=== PATIENT | male | born 1970 | race Caucasian/White ===

== ENCOUNTER → 2021-06-08 | Day surgery (SDC) | payer OTHER ==
[2021-06-06 16:11] VITALS: BMI 31.4
[~2021-06-08] MED LIST: INSULIN ASPART (NovoLOG) 100 UNIT/ML VIAL SQ ONE; PROPOFOL 10 MG/ML 20 ML VIAL IV ONE
[2021-06-08] MEDS: LACTATED RINGERS 1,000 ML IV SCH ×2 (13:05→13:15)
[2021-06-08] MEDS: LIDOCAINE 1% (10MG/ML) FOR IV START INTRADERMA PRN ×2 (13:06→13:15)
[2021-06-08 13:21] VITALS: TEMP 97
[2021-06-08 13:25] LABS: Glucose,Whole Blood 238 mg/dL (75-99)
--- NOTE | 2021-06-08 14:04 | P.GSHP ---
History of Present Illness H&P Date: 06/08/21 Chief Complaint: Screening colonoscopy This is a 50-year-old male who presents today for screening colonoscopy. He denies any significant GI complaints Past Medical History Past Medical History: Diabetes Mellitus, Hyperlipidemia, Hypertension Additional Past Medical History / Comment(s): seasonal allergies. "super bug" had port in chest received tx for 16 weeks History of Any Multi-Drug Resistant Organisms: None Reported Additional Past Surgical History / Comment(s): dental work. lt thumb surgery Past Anesthesia/Blood Transfusion Reactions: No Reported Reaction Past Psychological History: Depression Smoking Status: Former smoker Past Alcohol Use History: Daily Additional Past Alcohol Use History / Comment(s): quit smoking cig 1993,occasional cigar Past Drug Use History: None Reported Medications and Allergies Home Medications Medication Instructions Recorded Confirmed Type Ascorbic Acid [Vitamin C] 4,000 mg PO DAILY 06/06/21 06/06/21 History Atorvastatin [Lipitor] 20 mg PO HS 06/06/21 06/06/21 History Cholecalciferol (Vitamin D3) 125 mcg PO DAILY 06/06/21 06/06/21 History [Vitamin D3 (125 MCG = 5,000 IU)] Escitalopram [Lexapro] 20 mg PO HS 06/06/21 06/06/21 History Insulin Aspart [NovoLOG] 0 units SQ ACHS PRN 06/06/21 06/06/21 History Insulin Glargine [Lantus Vial] 40 unit SQ BID 06/06/21 06/06/21 History Krill Oil 500 mg PO DAILY 06/06/21 06/06/21 History Lisinopril [Zestril] 10 mg PO HS 06/06/21 06/06/21 History metFORMIN HCL [Glucophage] 500 mg PO BID 06/06/21 06/06/21 History Allergies Allergy/AdvReac Type Severity Reaction Status Date / Time diphenhydramine Allergy Unknown Verified 06/06/21 15:55 [From Benadryl] Penicillins Allergy Unknown Verified 06/06/21 15:55 Surgical - Exam Vital Signs Temp Pulse Resp BP Pulse Ox 97 F L 98 20 149/87 99 06/08/21 13:19 06/08/21 13:19 06/08/21 13:19 06/08/21 13:19 06/08/21 13:19 - General well developed, well nourished, no distress - Eyes PERRL - ENT normal pinna, normal nares - Neck no masses - Respiratory normal expansion - Cardiovascular Rhythm: regular - Abdomen Abdomen: soft, non tender Results - Labs Abnormal Lab Results - Last 24 Hours (Table) 06/08/21 Range/Units 13:18 POC Glucose (mg/dL) 238 H (75-99) mg/dL Assessment and Plan Assessment: We'll perform screening colonoscopy
--- NOTE | 2021-06-08 14:20 | P.OP ---
Date of Procedure: 06/08/21 Preoperative Diagnosis: Screening colonoscopy Postoperative Diagnosis: Normal colon Procedure(s) Performed: Colonoscopy Anesthesia: MAC Surgeon: Cuong Calderon Pathology: none sent Condition: stable Disposition: PACU Description of Procedure: The patient's placed on the endoscopy table lateral position. He received IV sedation. Digital rectal exam was performed which revealed no abnormalities. Flexible colonoscope was then placed in the patient's anus and passed throughout the entire colon. The cecum and proximal ascending colon full of brown liquid stool. This cannot be visualized. The remainder the ascending colon, transverse colon and descending colon appeared normal. The sigmoid colon and rectum appeared normal. The scope was withdrawn for patient.
[2021-06-08 15:17] VITALS: BP 122/74; PULSE 88; RESP 14
== END ==
LOC: ORWHC2ENDO 11:40
PROVIDERS: ATTEND Surgery
DX: Z12.11 Encounter for screening for malignant neoplasm of colon (principal); E11.9 Type 2 diabetes mellitus without complications; E78.5 Hyperlipidemia, unspecified; I10 Essential (primary) hypertension; Z79.4 Long term (current) use of insulin; Z87.891 Personal history of nicotine dependence; Z88.0 Allergy status to penicillin; Z88.8 Allergy status to other drugs, medicaments and biological substances
CPT/HCPCS: 45378; J2704

== ENCOUNTER 2023-07-17 11:14 | Observation (INO) | payer OTHER ==
[2023-07-17] MEDS ORDERED: SODIUM CHLORIDE 0.9% 2,000 ML IV STA (11:26)
[2023-07-17] MEDS ORDERED: THIAMINE 100 MG/ML 2 ML VIAL IM STA (11:27)
[2023-07-17] MEDS ORDERED: LORazepam 2 MG/ML INJ IV PRN (11:27)
--- NOTE | 2023-07-17 11:31 | ED ---
Alcohol HPI - General Chief Complaint: Alcohol Stated Complaint: ETOH Time Seen by Provider: 07/17/23 11:19 Source: patient, EMS, RN notes reviewed Mode of arrival: EMS Limitations: no limitations - History of Present Illness Initial Comments: Patient is a 52-year-old male presented via EMS with chief complaint of alcohol intoxication. Patient states he has a past medical history significant for type 2 diabetes and depression. Patient reports that he was checking himself into [facility] and they sent him here for detox. Patient's BAT was 340 at [facility]. He does state that he has detoxed before and denies any DTs or seizures. Patient states he has been drinking daily for years and his last drink was this morning. Patient is denying any current chest pain, shortness of breath, abdominal pain, fevers, chills, night sweats. - Related Data Home Medications Medication Instructions Recorded Confirmed Atorvastatin [Lipitor] 20 mg PO HS 06/06/21 07/17/23 Escitalopram [Lexapro] 20 mg PO DAILY 06/06/21 07/17/23 lisinopriL [Zestril] 10 mg PO DAILY 06/06/21 07/17/23 metFORMIN HCL [Glucophage] 500 mg PO BID 06/06/21 07/17/23 ALPRAZolam [Xanax] 0.5 mg PO HS PRN 07/17/23 07/17/23 INSULIN LISPRO (HumaLOG) [humaLOG] 6 units SQ TID-W/MEALS 07/17/23 07/17/23 INSULIN LISPRO (HumaLOG) [humaLOG] See Protocol SQ TID-W/MEALS PRN 07/17/23 07/17/23 Insulin Glargine,Hum.rec.anlog 40 units SQ BID 07/17/23 07/17/23 [Lantus Solostar Pen] Allergies Allergy/AdvReac Type Severity Reaction Status Date / Time diphenhydramine Allergy Unknown Verified 07/17/23 13:05 [From Benadryl] Penicillins Allergy Unknown Verified 07/17/23 13:05 Review of Systems ROS Statement: Those systems with pertinent positive or pertinent negative responses have been documented in the HPI. ROS Other: All systems not noted in ROS Statement are negative. Past Medical History Past Medical History: Diabetes Mellitus, Hyperlipidemia, Hypertension Additional Past Medical History / Comment(s): seasonal allergies. "super bug" had port in chest received tx for 16 weeks History of Any Multi-Drug Resistant Organisms: None Reported Additional Past Surgical History / Comment(s): dental work. lt thumb surgery Past Anesthesia/Blood Transfusion Reactions: No Reported Reaction Past Psychological History: Depression Smoking Status: Former smoker Past Alcohol Use History: Daily Past Drug Use History: None Reported General Exam Limitations: no limitations General appearance: alert, appears intoxicated Head exam: Present: atraumatic, normocephalic, normal inspection Eye exam: Present: normal appearance, PERRL, EOMI. Absent: scleral icterus, conjunctival injection, periorbital swelling Pupils: Present: normal accommodation Respiratory exam: Present: normal lung sounds bilaterally. Absent: respiratory distress, wheezes, rales, rhonchi, stridor Cardiovascular Exam: Present: regular rate, normal rhythm, normal heart sounds. Absent: systolic murmur, diastolic murmur, rubs, gallop, clicks GI/Abdominal exam: Present: soft, normal bowel sounds. Absent: distended, tenderness, guarding, rebound, rigid Neurological exam: Present: altered (Intoxicated), CN II-XII intact Psychiatric exam: Present: normal affect, normal mood Skin exam: Present: warm, dry, intact, normal color (Flush). Absent: rash Course Vital Signs 07/17/23 11:16 Pulse Rate 100 Respiratory 18 Rate Blood Pressure 118/69 O2 Sat by Pulse 92 L Oximetry Medical Decision Making - Medical Decision Making Was pt. sent in by a medical professional or institution (, PA, [employer]ACH[employer]GER, urgent care, hospital, or group home...) When possible be specific @ -No Did you speak to anyone other than the patient for history (EMS, parent, family, police, friend...)? What history was obtained from this source @ -No Did you review nursing and triage notes (agree or disagree)? Why? @ -I reviewed and agree with nursing and triage notes Were old charts reviewed (outside hosp., previous admission, EMS record, old EKG, old radiological studies, urgent care reports/EKG's, group home records)? Report findings @ -No old charts were reviewed Differential Diagnosis (chest pain, altered mental status, abdominal pain women, abdominal pain men, vaginal bleeding, weakness, fever, dyspnea, syncope, headache, dizziness, GI bleed, back pain, seizure, CVA, palpatations, mental health, musculoskeletal)? @ -Differential Mental Health: Depression, anxiety, bipolar, psychosis, schizophrenia, borderline personality, situational depression, adjustment disorder, behavioral disorder, brain tumor, malingering, substance abuse, enceph alopathy, medication reaction, dementia, hypothyroidism, degenerative neurologic disorder, lupus.... This is not meant to be all-inclusive list EKG interpreted by me (3pts min.). @ -None X-rays interpreted by me (1pt min.). @ -None done CT interpreted by me (1pt min.). @ -None done U/S interpreted by me (1pt. min.). @ -None done What testing was considered but not performed or refused? (CT, X-rays, U/S, labs)? Why? @ -None What meds were considered but not given or refused? Why? @ -None Did you discuss the management of the patient with other professionals (professionals i.e. , PA, [employer]ACH[employer]IGGER, lab, RT, psych nurse, high school social science teacher, regrinder operator, teacher, child support case officer, case briefer)? Give summary @ -Yes, I discussed this case with Dr. Marcial for medical admission. Was smoking cessation discussed for >3mins.? @ -No Was critical care preformed (if so, how long)? @ -No Were there social determinants of health that impacted care today? How? (Homelessness, low income, unemployed, alcoholism, drug addiction, transportation, low edu. Level, literacy, decrease access to med. care, chcf, rehab)? @ -No Was there de-escalation of care discussed even if they declined (Discuss DNR or withdrawal of care, Hospice)? DNR status @ -No What co-morbidities impacted this encounter? (DM, HTN, Smoking, COPD, CAD, Cancer, CVA, ARF, Chemo, Hep., AIDS, mental health diagnosis, sleep apnea, morbid obesity)? @ -Type 2 diabetes mellitus, hypertension, hyperlipidemia, alcohol dependence Was patient admitted / discharged? Hospital course, mention meds given and route, prescriptions, significant lab abnormalities, going to OR and other perti nent info. @ -Admitted. Patient is a 52-year-old male presenting to the ER with chief complaint of alcohol intoxication. Upon examination, patient vital signs are stable. Physic al exam was significant for patient was slurring his speech and had a strong odor of alcohol on his breath. Patient appeared intoxicated. Patient denied any current pain. Patient denied any history of DTs or seizures without withdrawal. Patient was started on 2 L of IV fluids. Labs obtained in the ER were significant for a serum alcohol level is 442. Glucose 266, AST 171, ALT 100, Alk phos 129. Patient received IM thiamine. I discussed this case with Dr. Marcial who accepted medical admission. Patient will be admitted for IV fluids and observation until clinically sober. [facility] protocol was initiated. I discussed the lab results and plan with patient. Patient will be admitted for further evaluation and care. Patient expressed understanding and agreement with care plan. Undiagnosed new problem with uncertain prognosis? @ -No Drug Therapy requiring intensive monitoring for toxicity (Heparin, Nitro, Insulin, Cardizem)? @ -No Were any procedures done? @ -No Diagnosis/symptom? @ -Alcohol intoxication/transaminitis Acute, or Chronic, or Acute on Chronic? @ -Acute Uncomplicated (without systemic symptoms) or Complicated (systemic symptoms)? @ -Uncomplicated Side effects of treatment? @ -No Exacerbation, Progression, or Severe Exacerbation? @ -No Poses a threat to life or bodily function? How? (Chest pain, USA, RI, pneumonia, PE, COPD, DKA, ARF, appy, cholecystitis, CVA, Diverticulitis, Homicidal, Suicidal, threat to staff... and all critical care pts) @ -Yes, alcohol intoxication/withdrawal can lead to DTs and seizures which may be life threatening. - Lab Data Result diagrams: 07/17/23 11:39 07/17/23 11:39 Lab Results 07/17/23 07/17/23 Range/Units 11:39 11:39 WBC 3.4 L (3.8-10.6) k/uL RBC 4.55 (4.30-5.90) m/uL Hgb 15.7 (13.0-17.5) gm/dL Hct 43.8 (39.0-53.0) % MCV 96.3 (80.0-100.0) fL MCH 34.5 (25.0-35.0) pg MCHC 35.8 (31.0-37.0) g/dL RDW 11.9 (11.5-15.5) % Plt Count 70 L (150-450) k/uL MPV 8.0 Sodium 140 (137-145) mmol/L Potassium 4.6 (3.5-5.1) mmol/L Chloride 95 L (98-107) mmol/L Carbon Dioxide 22 (22-30) mmol/L Anion Gap 23 mmol/L BUN 11 (9-20) mg/dL Creatinine 0.62 L (0.66-1.25) mg/dL Est GFR (CKD-EPI)AfAm >90 (>60 ml/min/1.73 sqM) Est GFR (CKD-EPI)NonAf >90 (>60 ml/min/1.73 sqM) Glucose 266 H (74-99) mg/dL Calcium 8.7 (8.4-10.2) mg/dL Phosphorus 4.2 (2.5-4.5) mg/dL Magnesium 1.6 (1.6-2.3) mg/dL Total Bilirubin 1.7 H (0.2-1.3) mg/dL AST 171 H (17-59) U/L ALT 100 H (4-49) U/L Alkaline Phosphatase 129 H (38-126) U/L Total Protein 8.1 (6.3-8.2) g/dL Albumin 4.8 (3.5-5.0) g/dL Serum Alcohol 442 H* mg/dL Disposition Clinical Impression: Alcohol intoxication, Transaminitis Disposition: ADMITTED IP TO THIS [facility] Condition: Stable Referrals: None,Stated [Primary Care Provider] - 1-2 days Time of Disposition: 14:09
[2023-07-17 11:57] LABS: HCT 43.8 % (39.0-53.0); HGB 15.7 gm/dL (13.0-17.5); MCH 34.5 pg (25.0-35.0); MCHC 35.8 g/dL (31.0-37.0); MCV 96.3 fL (80.0-100.0); RBC 4.55 m/uL (4.30-5.90); RDW 11.9 % (11.5-15.5); WBC 3.4 k/uL (3.8-10.6)
[2023-07-17 12:08] LABS: ALT 100 U/L (4-49); AST 171 U/L (17-59); African American GFR (CKD) >90 (>60 ml/min/1.73 sqM); Albumin 4.8 g/dL (3.5-5.0); Alkaline Phosphatase 129 U/L (38-126); Anion Gap 23 mmol/L; Blood Urea Nitrogen 11 mg/dL (9-20); Calcium 8.7 mg/dL (8.4-10.2); Carbon Dioxide 22 mmol/L (22-30); Chloride 95 mmol/L (98-107); Glucose 266 mg/dL (74-99); Magnesium 1.6 mg/dL (1.6-2.3); Non-African American GFR(CKD) >90 (>60 ml/min/1.73 sqM); Phosphorus 4.2 mg/dL (2.5-4.5); Potassium 4.6 mmol/L (3.5-5.1); Sodium 140 mmol/L (137-145); Total Bilirubin 1.7 mg/dL (0.2-1.3); Total Protein 8.1 g/dL (6.3-8.2)
[2023-07-17 12:36] LABS: Platelet Count 70 k/uL (150-450)
[2023-07-17 12:50] LABS: Alcohol 442 mg/dL
[2023-07-17] MEDS ORDERED: ONDANSETRON 4 MG/2 ML VIAL IVP PRN (12:59)
[2023-07-17] MEDS ORDERED: ACETAMINOPHEN TAB 325 MG TAB PO PRN (12:59)
[2023-07-17] MEDS ORDERED: NALOXONE 0.4 MG/ML 1 ML VIAL IV PRN (12:59)
[2023-07-17] MEDS: SODIUM CHLORIDE 0.9% 1,000 ML IV SCH ×2 (13:20→23:42)
--- NOTE | 2023-07-17 16:19 | XR ---
EXAMINATION TYPE: XR chest 1V DATE OF EXAM: 07/17/2023 COMPARISON: NONE HISTORY: 52 year-old male shortness of breath TECHNIQUE: Single frontal view of the chest is obtained. FINDINGS: Heart normal size. Aorta and pulmonary vasculature within normal limits. Strandy atelectas is at the right base. No consolidation or pleural effusion. External artifacts project at the right s uperior mediastinum. IMPRESSION: Some strandy atelectasis right base. No definite acute process.
[2023-07-17] MEDS ORDERED: MELATONIN 3 MG TABLET PO PRN (16:23)
[2023-07-17] MEDS ORDERED: NICOTINE GUM (POLACRILEX) 2 MG GUM BUCCAL PRN (16:23)
[2023-07-17] MEDS ORDERED: IPRATROPIUM-ALBUTEROL 3 ML NEB INHALATION PRN (16:26)
[2023-07-17] MEDS ORDERED: DEXTROSE 50% SYRINGE 50 ML IVP PRN ×2 (16:29)
--- NOTE | 2023-07-17 16:29 | P.HPIM ---
History of Present Illness H&P Date: 07/17/23 Patient is a 52-year-old male with a history of type 2 diabetes, hypertension, dyslipidemia, and alcohol dependency who presented to the ER from [place] due to alcohol intoxication. He is due to have an intake at [place] they had to have an alcohol level therefore sent to the emergency department. The ER he underwent an extensive evaluation. Initial vitals were within normal limits. Laboratory analysis included CBC CMP and serum alcohol level which were remarkable for platelets of 70, glucose 266, bilirubin 1.7, AST 171, alkaline phosphatase 100, and alcohol level of 442. Due to patient's level of intoxication ranges are made for observation. Patient seen and examined at bedside. He reports that he has been drinking daily for the last 20 years. He drinks 1-2 5ths and 30-60 beers daily. He does report a history of alcohol withdrawal in the past severe enough to be admitted to the intensive care unit. He has never required life support or had a seizure associated with his alcohol withdrawal. He reports he has had a chronic cough for the last several months and he believes it is due to black mold exposure. She denies any wheezing or shortness of breath. He does smoke cigarettes but has no known history of COPD. He follows with [facility] in [facility]. Patient denies any nausea, vomiting, diarrhea, constipation, fevers. Vital signs reviewed General: nontoxic, no distress, appears at stated age Derm: warm, dry Cardiovascular: S1S2 reg, no murmur, positive posterior tibial pulse bilateral, no edema Lungs: Diffuse wheezing bilateral, no rhonchi, no rales, no wheeze, no accessory muscle use Abdominal: soft, nontender to palpation, no guarding, no appreciable organomegaly, normal bowel sounds Ext: no gross muscle atrophy, no contractures Neuro: CN II-XII grossly intact, no focal neuro deficits Psych: Alert, oriented, appropriate affect Assessment/Plan: Acute alcohol intoxication in a known alcoholic with impending withdrawal Transaminitis secondary to alcohol intake - CIWA protocol with Ativan dosing IV 1-2 mg depending on CIWA score. Monitor patient for sedation - Start Librium 25 mg 3 times daily, hold for sedation -Thiamine 100 mg oral daily, full gas at 1 mg oral daily -Recheck liver enzymes in a.m. Chronic cough, probable bronchitis -Check chest x-ray -Start DuoNeb's 4 times daily and every 2 hours as needed Diabetes mellitus type 2 -Resume patient's NovoLog 6 units with meals and sliding scale, resume other manner 40 units twice daily -Follow blood sugars Hypertension Dyslipidemia -Lisinopril 10 mg daily, Lipitor 20 mg at night Nicotine dependency -Nicotine gum 2 mg every 2 hours as needed Imaging: Chest x-ray is reviewed by myself shows an elevated right hemidiaphragm with increased pulmonary vasculature and no acute process. Data Review: HPI The patient is admitted with an despite less than 2 midnight stay for alcohol intoxication Anticipated discharge date: in A.m. Anticipated discharge place: [place] This dictation was prepared using [email or web address] voice recognition software. Though every attempt is made to correct errors during dictation some may still exist. Past Medical History Past Medical History: Diabetes Mellitus, Hyperlipidemia, Hypertension Additional Past Medical History / Comment(s): seasonal allergies. "super bug" had port in chest received tx for 16 weeks History of Any Multi-Drug Resistant Organisms: None Reported Additional Past Surgical History / Comment(s): dental work. lt thumb surgery Past Anesthesia/Blood Transfusion Reactions: No Reported Reaction Past Psychological History: Depression Smoking Status: Former smoker Past Alcohol Use History: Daily Past Drug Use History: None Reported Medications and Allergies Home Medications Medication Instructions Recorded Confirmed Type Atorvastatin [Lipitor] 20 mg PO HS 06/06/21 07/17/23 History Escitalopram [Lexapro] 20 mg PO DAILY 06/06/21 07/17/23 History lisinopriL [Zestril] 10 mg PO DAILY 06/06/21 07/17/23 History metFORMIN HCL [Glucophage] 500 mg PO BID 06/06/21 07/17/23 History ALPRAZolam [Xanax] 0.5 mg PO HS PRN 07/17/23 07/17/23 History INSULIN LISPRO (HumaLOG) [humaLOG] 6 units SQ TID-W/MEALS 07/17/23 07/17/23 History INSULIN LISPRO (HumaLOG) [humaLOG] See Protocol SQ TID-W/MEALS PRN 07/17/23 07/17/23 History Insulin Glargine,Hum.rec.anlog 40 units SQ BID 07/17/23 07/17/23 History [Lantus Solostar Pen] Allergies Allergy/AdvReac Type Severity Reaction Status Date / Time diphenhydramine Allergy Unknown Verified 07/17/23 13:05 [From Benadryl] Penicillins Allergy Unknown Verified 07/17/23 13:05 Physical Exam Osteopathic Statement: *. No significant issues noted on an osteopathic structural exam other than those noted in the History and Physical/Consult. Vitals: Vital Signs Pulse Resp BP Pulse Ox 07/17/23 16:12 98 18 137/84 94 L 07/17/23 14:23 98 18 122/71 94 L 07/17/23 11:16 100 18 118/69 92 L Intake and Output 07/17/23 07/17/23 07/17/23 06:59 14:59 22:59 Other: Weight 90.718 kg Results CBC & Chem 7: 07/17/23 11:39 07/17/23 11:39 Labs: Abnormal Lab Results - Last 24 Hours (Table) 07/17/23 07/17/23 Range/Units 11:39 11:39 WBC 3.4 L (3.8-10.6) k/uL Plt Count 70 L (150-450) k/uL Chloride 95 L (98-107) mmol/L Creatinine 0.62 L (0.66-1.25) mg/dL Glucose 266 H (74-99) mg/dL Total Bilirubin 1.7 H (0.2-1.3) mg/dL AST 171 H (17-59) U/L ALT 100 H (4-49) U/L Alkaline Phosphatase 129 H (38-126) U/L Serum Alcohol 442 H* mg/dL
[2023-07-17] MEDS: chlordiazePOXIDE 25 MG CAP PO SCH ×2 (17:07→21:56)
[2023-07-17 17:25] LABS: Glucose,Whole Blood 214 mg/dL (70-110)
[2023-07-17] MEDS: INSULIN ASPART (NovoLOG) 100 UNIT/ML VIAL SQ SCH ×3 (18:22→20:52)
[2023-07-17 20:30] LABS: Glucose,Whole Blood 309 mg/dL (70-110)
[2023-07-17] MEDS: ATORVASTATIN 20 MG TAB PO SCH (20:41)
[2023-07-17] MEDS: INSULIN DETEMIR (LEVEMIR) 100 UNIT/ML SYR SQ SCH (20:52)
[2023-07-17] MEDS: IPRATROPIUM-ALBUTEROL 3 ML NEB INHALATION SCH (22:21)
[2023-07-17] MEDS: LORazepam 2 MG/ML INJ IV PRN (23:41)
[2023-07-18] MEDS: ALPRAZolam 0.5 MG TAB PO PRN ×2 (01:08→23:40)
[2023-07-18] MEDS: IPRATROPIUM-ALBUTEROL 3 ML NEB INHALATION SCH ×7 (02:19→23:41)
[2023-07-18] MEDS: LORazepam 2 MG/ML INJ IV PRN ×4 (03:28→23:40)
[2023-07-18 06:25] LABS: HCT 35.1 % (39.0-53.0); HGB 12.7 gm/dL (13.0-17.5); MCHC 36.3 g/dL (31.0-37.0); MCV 96.6 fL (80.0-100.0); Platelet Count 51 k/uL (150-450); RBC 3.63 m/uL (4.30-5.90); RDW 11.7 % (11.5-15.5)
[2023-07-18 06:34] LABS: Glucose,Whole Blood 299 mg/dL (70-110)
[2023-07-18 06:40] LABS: ALT 82 U/L (4-49); AST 141 U/L (17-59); African American GFR (CKD) >90 (>60 ml/min/1.73 sqM); Albumin 3.9 g/dL (3.5-5.0); Albumin/Globulin Ratio 1.3; Alkaline Phosphatase 138 U/L (38-126); Anion Gap 11 mmol/L; Blood Urea Nitrogen 9 mg/dL (9-20); Calcium 7.9 mg/dL (8.4-10.2); Carbon Dioxide 28 mmol/L (22-30); Chloride 94 mmol/L (98-107); Globulin 2.9 g/dL; Glucose 263 mg/dL (74-99); Non-African American GFR(CKD) >90 (>60 ml/min/1.73 sqM); Potassium 3.6 mmol/L (3.5-5.1); Sodium 133 mmol/L (137-145); Total Bilirubin 1.7 mg/dL (0.2-1.3); Total Protein 6.8 g/dL (6.3-8.2)
[2023-07-18] MEDS: INSULIN DETEMIR (LEVEMIR) 100 UNIT/ML SYR SQ SCH ×2 (06:47→20:43)
[2023-07-18] MEDS: INSULIN ASPART (NovoLOG) 100 UNIT/ML VIAL SQ SCH ×7 (06:47→20:42)
[2023-07-18] MEDS: THIAMINE 100 MG TAB PO SCH (08:52)
[2023-07-18] MEDS: MULTIVITAMINS, THERA 1 EACH TAB PO SCH (08:52)
[2023-07-18] MEDS: chlordiazePOXIDE 25 MG CAP PO SCH ×3 (08:52→20:42)
[2023-07-18] MEDS: FOLIC ACID 1 MG TAB PO SCH (08:52)
[2023-07-18] MEDS: ESCITALOPRAM 20 MG TAB PO SCH (08:52)
[2023-07-18] MEDS: lisinopriL 10 MG TAB PO SCH (08:52)
[2023-07-18 11:39] LABS: Glucose,Whole Blood 176 mg/dL (70-110)
[2023-07-18 12:13] VITALS: BMI 27.1
[2023-07-18] MEDS: SODIUM CHLORIDE 0.9% 1,000 ML IV SCH (12:31)
--- NOTE | 2023-07-18 14:21 | P.DS ---
Providers Date of admission: 07/17/23 14:24 Expected date of discharge: 07/18/23 Attending physician: Louisa Marcial DO Primary care physician: Stated None Hospital Course: Discharge Diagnosis: Hospital Course: Patient is a 52-year-old male with a history of type 2 diabetes, hypertension, dyslipidemia, and alcohol dependency who presented to the ER from [place] due to alcohol intoxication. He is due to have an intake at [place] they had to have an alcohol level therefore sent to the emergency department. The ER he underwent an extensive evaluation. Initial vitals were within normal limits. Laboratory analysis included CBC CMP and serum alcohol level which were remarkable for platelets of 70, glucose 266, bilirubin 1.7, AST 171, alkaline phosphatase 100, and alcohol level of 442. Due to patient's level of intoxication ranges are made for observation. Patient seen and examined at bedside. He reports that he has been drinking daily for the last 20 years. He drinks 1-2 5ths and 30-60 beers daily. He does report a history of alcohol withdrawal in the past severe enough to be admitted to the intensive care unit. He has never required life support or had a seizure associated with his alcohol withdrawal. He reports he has had a chronic cough for the last several months and he believes it is due to black mold exposure. She denies any wheezing or shortness of breath. He does smoke cigarettes but has no known history of COPD. He follows with [facility] in [facility]. Patient denies any nausea, vomiting, diarrhea, constipation, fevers. Vital signs reviewed General: nontoxic, no distress, appears at stated age Derm: warm, dry Cardiovascular: S1S2 reg, no murmur, positive posterior tibial pulse bilateral, no edema Lungs: Diffuse wheezing bilateral, no rhonchi, no rales, no wheeze, no accessory muscle use Abdominal: soft, nontender to palpation, no guarding, no appreciable organomegaly, normal bowel sounds Ext: no gross muscle atrophy, no contractures Neuro: CN II-XII grossly intact, no focal neuro deficits Psych: Alert, oriented, appropriate affect Assessment/Plan: Acute alcohol intoxication in a known alcoholic with impending withdrawal Transaminitis secondary to alcohol intake - CIWA protocol with Ativan dosing IV 1-2 mg depending on CIWA score. Monitor patient for sedation - Start Librium 25 mg 3 times daily, hold for sedation -Thiamine 100 mg oral daily, full gas at 1 mg oral daily -Recheck liver enzymes in a.m. Chronic cough, probable bronchitis -Check chest x-ray -Start DuoNeb's 4 times daily and every 2 hours as needed Diabetes mellitus type 2 -Resume patient's NovoLog 6 units with meals and sliding scale, resume other manner 40 units twice daily -Follow blood sugars Hypertension Dyslipidemia -Lisinopril 10 mg daily, Lipitor 20 mg at night Nicotine dependency -Nicotine gum 2 mg every 2 hours as needed A total of minutes of time were spent preparing this complex discharge summary. Pt was discharged on [ ] at [ ] Patient was seen independently by Nurse Practitioner. This document was prepared using [employer] dictation software. Please allow for e rrors in rn nursery while rare they do occur. Patient Condition at Discharge: Stable Plan - Discharge Summary Discharge Rx Participant: Yes New Discharge Prescriptions: Continue Atorvastatin [Lipitor] 20 mg PO HS ALPRAZolam [Xanax] 0.5 mg PO HS PRN PRN Reason: anxiety/sleep lisinopriL [Zestril] 10 mg PO DAILY Escitalopram [Lexapro] 20 mg PO DAILY metFORMIN HCL [Glucophage] 500 mg PO BID Insulin Glargine,Hum.rec.anlog [Lantus Solostar Pen] 40 units SQ BID INSULIN LISPRO (HumaLOG) [humaLOG] 6 units SQ TID-W/MEALS INSULIN LISPRO (HumaLOG) [humaLOG] See Protocol SQ TID-W/MEALS PRN PRN Reason: high blood sugar Discharge Medication List Atorvastatin [Lipitor] 20 mg PO HS 06/06/21 [History] Escitalopram [Lexapro] 20 mg PO DAILY 06/06/21 [History] lisinopriL [Zestril] 10 mg PO DAILY 06/06/21 [History] metFORMIN HCL [Glucophage] 500 mg PO BID 06/06/21 [History] ALPRAZolam [Xanax] 0.5 mg PO HS PRN 07/17/23 [History] INSULIN LISPRO (HumaLOG) [humaLOG] 6 units SQ TID-W/MEALS 07/17/23 [History] INSULIN LISPRO (HumaLOG) [humaLOG] See Protocol SQ TID-W/MEALS PRN 07/17/23 [History] Insulin Glargine,Hum.rec.anlog [Lantus Solostar Pen] 40 units SQ BID 07/17/23 [History] Follow up Appointment(s)/Referral(s): None,Stated [Primary Care Provider] - 1-2 days Patient Instructions/Handouts: Abuse of Alcohol (DC), Medical Clearance for Substance Abuse Treatment (DC) Activity/Diet/Wound Care/Special Instructions: Patient stable for discharge to [place]. Please call [place] to pickle sorter patient as patient is reported to have an intake at [place].
[2023-07-18 17:39] LABS: Glucose,Whole Blood 210 mg/dL (70-110)
--- NOTE | 2023-07-18 19:33 | P.PN ---
Subjective Progress Note Date: 07/18/23 Patient is a 52-year-old male with a history of type 2 diabetes, hypertension, dyslipidemia, and alcohol dependency who presented to the ER from [place] due to alcohol intoxication. He is due to have an intake at [place] they had to have an alcohol level therefore sent to the emergency department. The ER he underwent an extensive evaluation. Initial vitals were within normal limits. Laboratory analysis included CBC CMP and serum alcohol level which were remarkable for platelets of 70, glucose 266, bilirubin 1.7, AST 171, alkaline phosphatase 100, and alcohol level of 442. Due to patient's level of intoxication ranges are made for observation. Patient seen and examined at bedside. He reports that he has been drinking daily for the last 20 years. He drinks 1-2 5ths and 30-60 beers daily. He does report a history of alcohol withdrawal in the past severe enough to be admitted to the intensive care unit. He has never required life support or had a seizure associated with his alcohol withdrawal. He reports he has had a chronic cough for the last several months and he believes it is due to black mold exposure. She denies any wheezing or shortness of breath. He does smoke cigarettes but has no known history of COPD. He follows with [facility] in [facility]. Patient denies any nausea, vomiting, diarrhea, constipation, fevers. General: non toxic, no distress, appears at stated age Derm: warm, dry Head: atraumatic, normocephalic, symmetric Eyes: EOMI, no lid lag, anicteric sclera Mouth: no lip lesion, mucus membranes moist Cardiovascular: S1S2 reg, no murmur, positive posterior tibial pulse bilateral, Lungs: Lungs with equal air movement, soft expiratory diffuse wheezing bilaterally, no rhonchi, no rales , no accessory muscle use Abdominal: Distended abdomen soft, nontender to palpation, no guarding, no appreciable organomegaly Ext: no gross muscle atrophy, no edema, no contractures Neuro: CN II-XI grossly intact, no focal neuro deficits Psych: Alert, oriented, appropriate affect Assessment and plan of care: Acute alcohol intoxication in a known alcoholic with impending withdrawal Transaminitis secondary to daily alcohol use/abuse Anemia and thrombocytopenia secondary to daily alcohol abuse. - CIWA protocol with Ativan dosing IV 1-2 mg depending on CIWA score. Monitor patient for sedation - Start Librium 25 mg 3 times daily, hold for sedation -Thiamine 100 mg oral daily, full gas at 1 mg oral daily Chronic cough, probable bronchitis -Check chest x-ray negative for acute process, reporting some strandy changes right base inconclusive. Patient reports improvement of cough at this time. -Continue DuoNeb's 4 times daily and every 2 hours as needed Diabetes mellitus type 2 with hyperglycemia and hemoglobin A1c of 9.8%. -Continue patient's home medication regimen with NovoLog 6 units with meals and sliding scale as well as Levemir 40 units twice daily -Monitor blood glucose levels closely. Hypertension Dyslipidemia -Continue Lisinopril 10 mg daily and Lipitor 20 mg at night Nicotine dependency -Nicotine gum 2 mg every 2 hours as needed. Recommend smoking cessation. Data Review: -Morning labs completed and reviewed. CBC showing mild normocytic anemia with hemoglobin of 12.7 and thrombocytopenia with platelet count of 51. BMP revealing mild hyponatremia with sodium of 133 and hypochloremia with chloride of 94 otherwise normal findings. Blood glucose elevated at 263 this morning. Hemoglobin A1c 9.8%. Liver profile showing slight improvement but continued transaminitis with hyperbilirubinemia with elevated total bili of 1.7, AST of 141, ALT of 82, and alkaline phosphatase of 138. -Vital signs reviewed. Blood pressure 142/85, heart rate 81, respiratory rate 14, temp 98.5F, SpO2 of 96% on room air. Anticipated discharge date: Tomorrow morning, initially patient was going to be discharged this morning however [place] cannot take patient for admission until 07/19/23. Anticipated discharge place: [place] Patient was seen independently by Nurse Pracitioner. This document was prepared using [employer] dictation software. Please allow for errors in photovoltaic subcontractor, while rare they do occur. Ramin Zavaleta NP rendered care for this patient independently, reviewed the findings and plan as documented in the note above. I did not physically speak with or examine the patient on this date. Objective - Vital Signs Vital signs: Vital Signs Temp 98.5 F 07/18/23 06:45 Pulse 98 07/18/23 08:50 Resp 14 07/18/23 06:45 BP 142/85 07/18/23 06:45 Pulse Ox 96 07/18/23 06:45 FiO2 Intake & Output 07/17/23 07/18/23 07/18/23 18:59 06:59 18:59 Intake Total 826 Balance 826 Weight 90.718 kg Intake: Oral 826 Other: Voiding Method Toilet # Voids 2 - Labs CBC & Chem 7: 07/18/23 05:32 07/18/23 05:32 Labs: Abnormal Lab Results - Last 24 Hours (Table) 07/17/23 07/17/23 07/17/23 Range/Units 11:39 11:39 17:23 WBC 3.4 L (3.8-10.6) k/uL RBC (4.30-5.90) m/uL Hgb (13.0-17.5) gm/dL Hct (39.0-53.0) % Plt Count 70 L (150-450) k/uL Sodium (137-145) mmol/L Chloride 95 L (98-107) mmol/L Creatinine 0.62 L (0.66-1.25) mg/dL Glucose 266 H (74-99) mg/dL POC Glucose (mg/dL) 214 H (70-110) mg/dL Hemoglobin A1c (<=6.0) % Calcium (8.4-10.2) mg/dL Total Bilirubin 1.7 H (0.2-1.3) mg/dL AST 171 H (17-59) U/L ALT 100 H (4-49) U/L Alkaline Phosphatase 129 H (38-126) U/L Serum Alcohol 442 H* mg/dL 07/17/23 07/18/23 07/18/23 Range/Units 20:29 05:32 05:32 WBC (3.8-10.6) k/uL RBC 3.63 L (4.30-5.90) m/uL Hgb 12.7 L D (13.0-17.5) gm/dL Hct 35.1 L (39.0-53.0) % Plt Count 51 L (150-450) k/uL Sodium (137-145) mmol/L Chloride (98-107) mmol/L Creatinine (0.66-1.25) mg/dL Glucose (74-99) mg/dL POC Glucose (mg/dL) 309 H (70-110) mg/dL Hemoglobin A1c 9.8 H (<=6.0) % Calcium (8.4-10.2) mg/dL Total Bilirubin (0.2-1.3) mg/dL AST (17-59) U/L ALT (4-49) U/L Alkaline Phosphatase (38-126) U/L Serum Alcohol mg/dL 07/18/23 07/18/23 Range/Units 05:32 06:33 WBC (3.8-10.6) k/uL RBC (4.30-5.90) m/uL Hgb (13.0-17.5) gm/dL Hct (39.0-53.0) % Plt Count (150-450) k/uL Sodium 133 L (137-145) mmol/L Chloride 94 L (98-107) mmol/L Creatinine 0.43 L (0.66-1.25) mg/dL Glucose 263 H (74-99) mg/dL POC Glucose (mg/dL) 299 H (70-110) mg/dL Hemoglobin A1c (<=6.0) % Calcium 7.9 L (8.4-10.2) mg/dL Total Bilirubin 1.7 H (0.2-1.3) mg/dL AST 141 H (17-59) U/L ALT 82 H (4-49) U/L Alkaline Phosphatase 138 H (38-126) U/L Serum Alcohol mg/dL
[2023-07-18] MEDS: ATORVASTATIN 20 MG TAB PO SCH (19:52)
[2023-07-18 19:55] LABS: Glucose,Whole Blood 283 mg/dL (70-110)
[2023-07-19] MEDS: IPRATROPIUM-ALBUTEROL 3 ML NEB INHALATION SCH ×2 (03:35→08:19)
[2023-07-19] MEDS: SODIUM CHLORIDE 0.9% 1,000 ML IV SCH (05:07)
[2023-07-19 06:23] LABS: Glucose,Whole Blood 93 mg/dL (70-110)
[2023-07-19] MEDS: INSULIN ASPART (NovoLOG) 100 UNIT/ML VIAL SQ SCH (06:34)
[2023-07-19 07:56] VITALS: BP 146/89; RESP 14; TEMP 98.4
[2023-07-19] MEDS: lisinopriL 10 MG TAB PO SCH (08:04)
[2023-07-19] MEDS: ESCITALOPRAM 20 MG TAB PO SCH (08:05)
[2023-07-19] MEDS: MULTIVITAMINS, THERA 1 EACH TAB PO SCH (08:05)
[2023-07-19] MEDS: THIAMINE 100 MG TAB PO SCH (08:05)
[2023-07-19] MEDS: FOLIC ACID 1 MG TAB PO SCH (08:05)
[2023-07-19] MEDS: chlordiazePOXIDE 25 MG CAP PO SCH (08:05)
[2023-07-19] MEDS: INSULIN DETEMIR (LEVEMIR) 100 UNIT/ML SYR SQ SCH (08:06)
[2023-07-19 08:49] VITALS: PULSE 84
[2023-07-19] MEDS ORDERED: LOPERAMIDE 2 MG CAP PO STA (09:08)
--- NOTE | 2023-07-19 10:33 | P.DS ---
Providers Date of admission: 07/17/23 14:24 Expected date of discharge: 07/19/23 Attending physician: Louisa Marcial DO Primary care physician: Stated None Hospital Course: Discharge Diagnosis: Acute alcohol intoxication in a known alcoholic with impending withdrawal Transaminitis secondary to daily alcohol use/abuse Anemia and thrombocytopenia secondary to daily alcohol abuse . Chronic cough, probable chronic bronchitis, recommend smoking cessation Diabetes mellitus type 2 with hyperglycemia and hemoglobin A1c of 9.8%. Hypertension. -Continue Lisinopril 10 mg daily Dyslipidemia-Continue Lipitor 20 mg at night Nicotine dependency. Recommend smoking cessation. Hospital Course: Patient is a 52-year-old male with a history of type 2 diabetes, hypertension, dyslipidemia, and alcohol dependency who presented to the ER from [place] due to alcohol intoxication. He is due to have an intake at [place] they had to have an alcohol level therefore sent to the emergency department. The ER he underwent an extensive evaluation. Initial vitals were within normal limits. Laboratory analysis included CBC CMP and serum alcohol level which were remarkable for platelets of 70, glucose 266, bilirubin 1.7, AST 171, alkaline phosphatase 100, and alcohol level of 442. Due to patient's level of intoxication ranges are made for observation. Patient was admitted over to 9 hospitalization and placed on alcohol withdrawal protocol. Patient doing well and reports ready to go back to rehab. Patient has been medically cleared for return to inpatient drug and alcohol rehabilitation facility. Patient was provided with a cab voucher for transport back to [place]. Physical exam: General: non toxic, no distress, appears at stated age Derm: warm, dry Head: atraumatic, normocephalic, symmetric Eyes: EOMI, no lid lag, anicteric sclera Mouth: no lip lesion, mucus membranes moist Cardiovascular: S1S2 reg, no murmur, positive posterior tibial pulse bilateral, Lungs: Lungs with equal air movement, soft expiratory diffuse wheezing bilaterally, no rhonchi, no rales , no accessory muscle use Abdominal: Distended abdomen soft, nontender to palpation, no guarding, no appreciable organomegaly Ext: no gross muscle atrophy, no edema, no contractures Neuro: CN II-XI grossly intact, no focal neuro deficits Psych: Alert, oriented, appropriate affect A total of 31 minutes of time were spent preparing this complex discharge summary. Pt was discharged on 07/19/23 at 8:55 AM Patient was seen independently by Nurse Practitioner. This document was prepared using [employer] dictation software. Please allow for errors in roofer metal while rare they do occur. Ramin Zavaleta NP rendered care for this patient independently, reviewed the findings and plan as documented in the note above. I did not physically speak with or examine the patient on this date. Patient Condition at Discharge: Stable Plan - Discharge Summary Discharge Rx Participant: Yes New Discharge Prescriptions: Continue Atorvastatin [Lipitor] 20 mg PO HS ALPRAZolam [Xanax] 0.5 mg PO HS PRN PRN Reason: anxiety/sleep lisinopriL [Zestril] 10 mg PO DAILY Escitalopram [Lexapro] 20 mg PO DAILY metFORMIN HCL [Glucophage] 500 mg PO BID Insulin Glargine,Hum.rec.anlog [Lantus Solostar Pen] 40 units SQ BID INSULIN LISPRO (HumaLOG) [humaLOG] 6 units SQ TID-W/MEALS INSULIN LISPRO (HumaLOG) [humaLOG] See Protocol SQ TID-W/MEALS PRN PRN Reason: high blood sugar Discharge Medication List Atorvastatin [Lipitor] 20 mg PO HS 06/06/21 [History] Escitalopram [Lexapro] 20 mg PO DAILY 06/06/21 [History] lisinopriL [Zestril] 10 mg PO DAILY 06/06/21 [History] metFORMIN HCL [Glucophage] 500 mg PO BID 06/06/21 [History] ALPRAZolam [Xanax] 0.5 mg PO HS PRN 07/17/23 [History] INSULIN LISPRO (HumaLOG) [humaLOG] 6 units SQ TID-W/MEALS 07/17/23 [History] INSULIN LISPRO (HumaLOG) [humaLOG] See Protocol SQ TID-W/MEALS PRN 07/17/23 [History] Insulin Glargine,Hum.rec.anlog [Lantus Solostar Pen] 40 units SQ BID 07/17/23 [History] Follow up Appointment(s)/Referral(s): None,Stated [Primary Care Provider] - 1-2 days Patient Instructions/Handouts: Abuse of Alcohol (DC), Medical Clearance for Substance Abuse Treatment (DC) Activity/Diet/Wound Care/Special Instructions: Patient stable for discharge to [place]. Please call [facility] to burr picker patient as patient is reported to have an intake at [place]. Discharge/Stand Alone Forms: AA Meetings [place] Discharge Disposition: OTHER INSTITUTION NOT DEFINED
== END 2023-07-19 09:19 | disposition other institution (70) ==
LOC: EC 11:14 → 6NMEDSUR 14:24
PROVIDERS: ADMIT Internal Medicine; ATTEND Internal Medicine
DX: F10.229 Alcohol dependence with intoxication, unspecified (principal); F10.239 Alcohol dependence with withdrawal, unspecified; R74.01 Elevation of levels of liver transaminase levels; E11.9 Type 2 diabetes mellitus without complications; D69.59 Other secondary thrombocytopenia; D64.9 Anemia, unspecified; E87.1 Hypo-osmolality and hyponatremia; E87.8 Other disorders of electrolyte and fluid balance, not elsewhere classified; E80.6 Other disorders of bilirubin metabolism; R05.3 Chronic cough; I10 Essential (primary) hypertension; E78.5 Hyperlipidemia, unspecified; F32.A Depression, unspecified; J30.2 Other seasonal allergic rhinitis; Y90.8 Blood alcohol level of 240 mg/100 ml or more; F17.210 Nicotine dependence, cigarettes, uncomplicated; Z79.84 Long term (current) use of oral hypoglycemic drugs; Z79.4 Long term (current) use of insulin; Z79.899 Other long term (current) drug therapy; Z88.0 Allergy status to penicillin; Z88.8 Allergy status to other drugs, medicaments and biological substances; Z77.120 Contact with and (suspected) exposure to mold (toxic); Z71.6 Tobacco abuse counseling
CPT/HCPCS: 96376 ×2; 96361 ×3; 96372; 96374; 99285; 36415; 94640 ×4; 80053 ×2; 83735; 84100; 85027 ×2; 80320; 83036; 71045; G0378 ×3; J2060 ×2; J3411